=== PATIENT | female | born 1970 | race Caucasian/White ===

== ENCOUNTER 2018-09-17 15:14 | Emergency (ER) | payer OTHER ==
[2018-09-17 15:14] VITALS: BMI 25.0
--- NOTE | 2018-09-17 16:19 | RAD ---
Date of service: 09/17/2018 HISTORY: SOB COMPARISON: Chest radiographs 07/22/2016. TECHNIQUE: Chest PA and lateral views FINDINGS: LUNGS: No active pulmonary disease. PLEURA: No significant pleural effusion identified. No pneumothorax apparent. CARDIOVASCULAR: No aortic atherosclerotic calcification present. Normal cardiac size. No pulmonary vascular congestion. OSSEOUS STRUCTURES: No significant abnormalities. VISUALIZED UPPER ABDOMEN: Normal. OTHER FINDINGS: None. IMPRESSION: No interval acute cardiopulmonary disease appreciated.
[2018-09-17 16:23] LABS: BASO % 0.3 % (0.0-2.0); EOS % 0.1 % (0.0-4.0); HEMOGLOBIN 11.6 g/dL (11.0-16.0); LYMPH # 0.9 K/uL (1.0-4.3); LYMPH % 11.4 % (20.0-40.0); MEAN CELL VOLUME 81.7 fL (81.0-99.0); MEAN CORPUSCULAR HEMOGLOBIN 26.3 pg (27.0-31.0); MEAN CORPUSCULAR HGB CONC 32.1 g/dL (33.0-37.0); MEAN PLATELET VOLUME 7.4 fL (7.2-11.7); MONO # 0.4 K/uL (0.0-0.8); MONO % 5.5 % (0.0-10.0); NEUT # 6.3 K/uL (1.8-7.0); NEUT % 82.7 % (50.0-75.0); NRBC % 0.1 % (0.0-2.0); RBC 4.4 Mil/uL (3.80-5.20); RED CELL DISTRIBUTION WIDTH 14.5 % (11.5-14.5); WHITE BLOOD COUNT 7.6 K/uL (4.8-10.8)
[2018-09-17 16:33] LABS: ALB/GLOB RATIO 1.6 (1.0-2.1); ALBUMIN 4.2 g/dL (3.5-5.0); ALT/SGPT 22 U/L (9-52); AST/SGOT 22 U/L (14-36); BLOOD UREA NITROGEN 11 mg/dL (7-17); CALCIUM 9.9 mg/dl (8.6-10.4); GFR NON-AFRICAN AMERICAN > 60
--- NOTE | 2018-09-17 16:50 | C.PDOC ---
History Of Present Illness 48 y/o female,w/PMhx of asthma, presents to the ER complaining of cough and shortness of breath which has been present for the past 2 weeks. Patient states that she initially saw her PMD Dr.Muhammad Collazo and he prescribed her Z-Pack and Prednisone. Patient notes that she she took the medications with some improvement but her cough persisted. then prescribed her Cipro and more Prednisone several days ago. However, patient took the medications and her symptoms became worse. She developed laryngitis several days age and now has hoarse voice.She notes that she had outpatient CXR which showed " lot of air" and she notes that wanted her to get "scan of lungs." Denies having CP, fever, and chills. Time Seen by Provider: 09/17/18 15:48 Chief Complaint (Nursing): Shortness Of Breath History Per: Patient History/Exam Limitations: no limitations Onset/Duration Of Symptoms: Days Current Symptoms Are (Timing): Still Present Severity: Moderate Past Medical History Reviewed: Historical Data, Nursing Documentation, Vital Signs Vital Signs: Last Vital Signs Temp 98.6 F 09/17/18 15:21 Pulse 80 09/17/18 15:21 Resp 18 09/17/18 15:52 BP 137/88 09/17/18 15:21 Pulse Ox 100 09/17/18 15:21 Primary Care Provider: Morales Collazo A - Medical History PMH: Asthma, Osteoporosis Surgical History: Cholecystectomy Family History: States: No Known Family Hx - Social History Hx Tobacco Use: No Hx Alcohol Use: No Hx Substance Use: No - Immunization History Hx Tetanus Toxoid Vaccination: No Hx Influenza Vaccination: Yes Hx Pneumococcal Vaccination: No Review Of Systems Constitutional: Negative for: Fever, Chills Cardiovascular: Negative for: Chest Pain Respiratory: Positive for: Cough, Shortness of Breath Gastrointestinal: Negative for: Nausea, Vomiting, Abdominal Pain Physical Exam - Physical Exam Appears: No Acute Distress, Other (very hoarse voice) Skin: Normal Color, Warm, Dry Head: Atraumatic, Normacephalic Eye(s): bilateral: Normal Inspection Nose: Normal Oral Mucosa: Moist Neck: Supple Chest: Symmetrical Cardiovascular: Rhythm Regular Respiratory: Normal Breath Sounds, No Rales, No Rhonchi, No Wheezing Gastrointestinal/Abdominal: Normal Exam, Soft, No Tenderness, No Guarding, No Rebound Neurological/Psych: Oriented x3, Normal Speech ED Course And Treatment - Laboratory Results Result Diagrams: 09/17/18 16:17 09/17/18 16:17 Lab Results: Total Bilirubin 0.2 mg/dL (0.2-1.3) 09/17/18 16:17 AST 22 U/L (14-36) 09/17/18 16:17 ALT 22 U/L (9-52) 09/17/18 16:17 Alkaline Phosphatase 101 U/L (38-126) 09/17/18 16:17 Total Protein 7.0 g/dL (6.3-8.3) 09/17/18 16:17 Albumin 4.2 g/dL (3.5-5.0) 09/17/18 16:17 Globulin 2.7 gm/dL (2.2-3.9) 09/17/18 16:17 Albumin/Globulin Ratio 1.6 (1.0-2.1) 09/17/18 16:17 Lab Interpretation: No Acute Changes O2 Sat by Pulse Oximetry: 100 (RA) Pulse Ox Interpretation: Normal - Radiology CXR: Viewed By Me, Read By Radiologist CXR Interpretation: Yes: No Acute Disease - Other Rad CXR X-Ray: Viewed By Me, Read By Radiologist Interpretation: Date of service: 09/17/2018. HISTORY: SOB. COMPARISON: Chest radiographs 07/22/2016. TECHNIQUE: Chest PA and lateral views. FINDINGS: LUNGS: No active pulmonary disease. PLEURA: No significant pleural effusion identified. No pneumothorax apparent. CARDIOVASCULAR: No aortic atherosclerotic calcification present. Normal cardiac size. No pulmonary vascular congestion. OSSEOUS STRUCTURES: No significant abnormalities. VISUALIZED UPPER ABDOMEN: Normal. OTHER FINDINGS: None. IMPRESSION: No interval acute cardiopulmonary disease appreciated. Reevaluation Time: 18:47 Reassessment Condition: Improved - Physician Consult Information Time Consulting Physician Contacted: 18:47 Physician Contacted: Po Scruggs Outcome Of Conversation: Dr Recio ([phone]) called. Results discussed and he agrees to follow with the patient as an out patient. Patient is to contiue current course of therapy. Medical Decision Making Medical Decision Making: Plan: --Labs --CXR --HCG, Qual. --Albuterol Disposition Counseled Patient/Family Regarding: Studies Performed, Diagnosis, Need For Followup - Disposition Disposition: HOME/ ROUTINE Disposition Time: 18:56 Condition: STABLE Instructions: Laryngitis, Asthma in Adults Forms: [employer] (U[place]bek) - Clinical Impression Clinical Impression: Acute asthmatic bronchitis, Laryngitis - Scribe Statement The provider has reviewed the documentation as recorded by the Fina Rowland Provider Attestation: All medical record entries made by the Sidraibgomez were at my direction and personally dictated by me. I have reviewed the chart and agree that the record accurately reflects my personal performance of the history, physical exam, medic al decision making, and the department course for this patient. I have also personally directed, reviewed, and agree with the discharge instructions and disposition.
[2018-09-17] MEDS ORDERED: Albuterol 0.083% Inhal Sol (2.5 mg/3 mL) UD IH STA (16:58)
[2018-09-17] MEDS ORDERED: Albuterol-Ipratrop 3 mg / 0.5 (3 ml) UD IH STA (16:58)
[2018-09-17] MEDS ORDERED: Albuterol 0.083% Inhal Sol (2.5 mg/3 mL) UD ONE (17:11)
[2018-09-17] MEDS ORDERED: Albuterol-Ipratrop 3 mg / 0.5 (3 ml) UD ONE (17:11)
[2018-09-17 18:31] VITALS: BP 108/70; PULSE 85; RESP 16; TEMP 98
[2018-09-17 18:42] VITALS: O2SAT 100
== END 2018-09-17 19:15 | disposition home or self-care (01) ==
LOC: C.ER 15:14
DX: J45.909 Unspecified asthma, uncomplicated (principal); J04.0 Acute laryngitis